=== PATIENT | female | born 1990 | race Caucasian/White ===

== ENCOUNTER 2024-08-18 08:56 | Emergency (ER) | payer MEDICAID, OTHER ==
[~2024-08-18] VITALS: Ht 165.1 cm; Wt 73.0 kg
[2024-08-18 09:04] VITALS: BP 131/73; RESP 16; TEMP 98.4; O2SAT 100
[2024-08-18 09:07] VITALS: PULSE 85; O2SAT 99
[2024-08-18] MEDS ORDERED: LORAZEPAM 1MG TABLET PO ONE (09:30)
[2024-08-18] MEDS ORDERED: LIDOCAINE 5% PATCH TOP SCH (09:30)
[2024-08-18] MEDS ORDERED: KETOROLAC 30MG/ML VIAL IM ONE (09:30)
[2024-08-18 09:40] LABS: BASOPHILS % 0.4 % (0.0-2.0); HEMOGLOBIN. 14.1 g/dL (12.0-16.0); MEAN CORPUSCULAR HEMOGLOBIN 28.5 pg (28.0-32.0); MEAN CORPUSCULAR HGB CONC 33.5 g/dL (31.0-37.0); MEAN PLATELET VOLUME 8.6 fl (7.4-10.4); NEUTROPHILS % 56.6 % (40.0-76.0); PLATELET 237 x1000/uL (130-400); RED BLOOD CELL COUNT 4.94 mill/uL (4.2-5.4); RED CELL DISTRIBUTION WIDTH 14.6 % (11.6-14.6); WHITE BLOOD COUNT 8.2 x1000/uL (4.5-11.0)
[2024-08-18 09:52] LABS: CHLORIDE 105 mEq/L (98-107); POTASSIUM 4.6 mEq/L (3.5-5.1); SODIUM 136 mEq/L (136-145)
[2024-08-18 09:53] LABS: CALCIUM 9.7 mg/dL (8.7-10.4); CARBON DIOXIDE 26 mEq/L (21-32)
[2024-08-18 09:58] LABS: CREATININE 0.8 mg/dL (0.6-1.0); GLUCOSE 120 mg/dL (70-105); UREA NITROGEN BLOOD 11 mg/dL (9-23)
[2024-08-18 10:02] LABS: HCG SCREEN NEGATIVE
[2024-08-18 10:21] LABS: TROPONIN I HIGH SENSITIVITY < 4 ng/L (3.0-34)
[2024-08-18] MEDS ORDERED: CYCL5TAB MT (13:09)
== END 2024-08-18 13:20 ==
LOC: ER 08:56
DX: R51.9 Headache, unspecified (principal); R55 Syncope and collapse
CPT/HCPCS: 80048; 84703; 85025; 84484; 36415; 93005; 99284; Z7610